=== PATIENT | male | born 1990 ===

== ENCOUNTER 2016-08-07 19:05 | Emergency (ER) | payer OTHER ==
[~2016-08-07] VITALS: Ht 182.9 cm; Wt 88.0 kg
[~2016-08-07 19:05] MED LIST: DOXY100T20 PO; IBUP-1542 PO
[2016-08-07 19:09] VITALS: Ht 182.9 cm; Wt 88.0 kg
[2016-08-07] MEDS ORDERED: IBUPROFEN 600 MG TAB PO ONE (20:00)
[2016-08-07 20:18] LABS: URINE BLOOD (Dip) POC Trace-lysed (NEGATIVE)
--- NOTE | 2016-08-07 20:59 | RADRPT ---
PROCEDURE: US Scrotum. CLINICAL INDICATION: Scrotal pain. TECHNIQUE: Multiple sonographic images of the scrotal region were obtained utilizing a linear arra y transducer with grayscale and color-flow and pulsed Doppler imaging. The images were reviewed on a high-resolution PACS workstation. COMPARISON: No prior studies are available for comparison. FINDINGS: The right testis measures 5.0 x 2.4 x 3.3 cm. The left testis measures 4.2 x 1.9 x 3.1 cm. There is no intratesticular mass. There is a small benign right epididymal cyst measuring 0.5 cm and a small benign left epididymal cy st measuring 0.3 cm. The epididymi are otherwise normal. There is normal flow to both testes demonstrated with color Doppler and pulsed Doppler sonography. There is no hydrocele. There is no varicocele. The scrotal wall is unremarkable. IMPRESSION: 1. Small benign bilateral epididymal cysts. 2. Otherwise normal scrotal ultrasound. RPTAT: QQ .Wilfredo Mcneill MD, MD Date Time Electronically viewed and signed by .Wilfredo Mcneill MD, on 08/07/2016 20:59 .R/
[2016-08-07] MEDS ORDERED: DOXY100T20 PO (21:24)
[2016-08-07] MEDS ORDERED: IBUP-1542 PO (21:25)
[2016-08-07 21:37] VITALS: BP 155/99; PULSE 88; RESP 18; TEMP 97.9
--- NOTE | 2016-08-08 01:31 | ERD ---
ER Documentation Chief Complaint Date/Time DATE: 08/08/16 TIME: 01:28 Chief Complaint Scrotal pain, swelling and back pain X 3 days. Seen before for complaint. HPI This patient is a 25-year-old male with no significant medical history presenting to the emergency department for scrotal pain and swelling ongoing intermittently for the past 2 days. Patient states is worse on the right testicle. The patient has had similar issues in the past and was treated successfully with doxycycline. He also reports chills. The patient denies any new sexual partners. The patient has had no urethral discharge. He has had no nausea, vomiting, diarrhea, fevers, or other symptoms. He took Tylenol with mild relief of his symptoms. He states he did get hit with a serving tray while at work just before the pain began 2 days ago. ROS All systems reviewed and are negative except as per history of present illness. Medications Home Meds Active Scripts Ibuprofen* (Motrin*) 600 Mg Tab, 600 MG PO Q6, #30 TAB Prov:VICENTE YUEN PA-C 08/07/16 Doxycycline Hyclate* (Doxycycline Hyclate*) 100 Mg Tablet.dr, 100 MG PO BID for 10 Days, #20 TAB Prov:VICENTE YUEN PA-C 08/07/16 Ibuprofen* (Motrin*) 600 Mg Tab, 600 MG PO Q6, #30 TAB Prov:ALKA HAWLEY MD 02/15/16 Doxycycline Hyclate* (Doxycycline Hyclate*) 100 Mg Tablet.dr, 100 MG PO BID for 10 Days, TAB Prov:ALKA HAWLEY MD 02/15/16 Allergies Allergies: Coded Allergies: No Known Allergy (Unverified , 02/15/16) PMhx/Soc Medical and Surgical Hx: pt denies Medical Hx, pt denies Surgical Hx Hx Alcohol Use: No Hx Substance Use: No Hx Tobacco Use: No Smoking Status: Never smoker FmHx Noncontributory for chief complaint. Physical Exam Vitals Vital Signs Date Time Temp Pulse Resp B/P Pulse Ox O2 Delivery O2 Flow Rate FiO2 08/07/16 21:37 97.9 88 18 155/99 97 Room Air 08/07/16 19:09 97.2 104 18 142/99 97 Physical Exam Const: The patient is resting comfortably in no acute distress. Head: Atraumatic Eyes: Normal Conjunctiva ENT: Normal External Ears, Nose and Mouth. Neck: Full range of motion..~ No meningismus. Resp: Clear to auscultation bilaterally Cardio: Regular rate and rhythm, no murmurs Abd: Soft, non tender, non distended. Normal bowel sounds Exam: Scrotum: Normal Hernia: None Testes/Epid: There is some tenderness to palpation of the superior portion of the right testicle. The right testicle is high riding compared to the left. Cremaster: Reflex intact Lymph: No inguinal lymphadenopathy Discharge: None Skin: No petechiae or rashes Back: No midline or flank tenderness Ext: No cyanosis, or edema Neur: Awake and alert Psych: Normal Mood and Affect Results 24 hrs Laboratory Tests Test 08/07/16 20:18 Bedside Urine pH (LAB) 5.5 Bedside Urine Protein (LAB) Negative Bedside Urine Glucose (UA) Negative Bedside Urine Ketones (LAB) Negative Bedside Urine Blood Trace-lysed Bedside Urine Nitrite (LAB) Negative Bedside Urine Leukocyte Esterase (L Negative Current Medications Medications (Trade) Dose Ordered Sig/Joyce Route PRN Reason Start Time Stop Time Status Last Admin Dose Admin Ibuprofen (Motrin) 600 mg ONCE ONCE PO 08/07/16 20:00 08/07/16 20:01 DC 08/07/16 20:13 Procedures/MDM 25-year-old male presents secondary to complaints of testicular pain. On physical examination the right testicle is lying higher than the left. The patient states this is normal for him. There is no warmth, erythema, or other abnormalities noted. Radiology: PROCEDURE: US Scrotum. CLINICAL INDICATION: Scrotal pain. TECHNIQUE: Multiple sonographic images of the scrotal region were obtained utilizing a linear array transducer with grayscale and color-flow and pulsed Doppler imaging. The images were reviewed on a high-resolution PACS workstation. COMPARISON: No prior studies are available for comparison. FINDINGS: The right testis measures 5.0 x 2.4 x 3.3 cm. The left testis measures 4.2 x 1.9 x 3.1 cm. There is no intratesticular mass. There is a small benign right epididymal cyst measuring 0.5 cm and a small benign left epididymal cyst measuring 0.3 cm. The epididymi are otherwise normal. There is normal flow to both testes demonstrated with color Doppler and pulsed Doppler sonography. There is no hydrocele. There is no varicocele. The scrotal wall is unremarkable. IMPRESSION: 1. Small benign bilateral epididymal cysts. 2. Otherwise normal scrotal ultrasound. RPTAT: QQ .Alka Mcneill MD, MD Date Time Electronically viewed and signed by .Alka Mcneill MD, MD on 08/07/2016 20:59 .R/ CC: VICENTE YUEN PA-C I suspect possible epididymitis. The patient will be treated as an outpatient with a prescription for ibuprofen and doxycycline. The patient understands the discharge plan and diagnosis. At this time I have low suspicion for testicular torsion, orchitis, septicemia, or other emergent conditions. The patient understands and agrees with the discharge plan and diagnosis. He was given strict return ER precautions and he demonstrates good understanding. The patient was seen dynamically stable prior to discharge. The patient's blood pressure was slightly elevated. Patient's blood pressure was elevated (>120/80 ) but appears stable without evidence of hypertension emergency or urgency. The patient was counseled about the risks of hypertension and urged to pursue outpatient monitoring and therapy within a week with their primary care physician. Departure Diagnosis: Primary Impression: Testicular pain Condition: Fair Patient Instructions: Epididymitis, Contusion, Testicles Or Scrotum Referrals: MARION BARRIENTOS MD [facility] YOU HAVE RECEIVED A MEDICAL SCREENING EXAM AND THE RESULTS INDICATE THAT YOU DO NOT HAVE A CONDITION THAT REQUIRES URGENT TREATMENT IN THE EMERGENCY DEPARTMENT. FURTHER EVALUATION AND TREATMENT OF YOUR CONDITION CAN WAIT UNTIL YOU ARE SEEN IN YOUR DOCTORS OFFICE WITHIN THE NEXT 1-2 DAYS. IT IS YOUR RESPONSIBILITY TO MAKE AN APPOINTMENT FOR FOLOW-UP CARE. IF YOU HAVE A PRIMARY DOCTOR --you should call your primary doctor and schedule an appointment IF YOU DO NOT HAVE A PRIMARY DOCTOR YOU CAN CALL OUR PHYSICIAN REFERRAL HOTLINE AT IF YOU CAN NOT AFFORD TO SEE A PHYSICIAN YOU CAN CHOSE FROM THE FOLLOWING [facility] [address] [facility]. [facility] [address] [facility]. CLAUDINE CAL[facility]WELL [facility] [address] [facility]. [facility] [address] [facility]. [facility] [address] [facility]. [facility] [address] Additional Instructions: Follow-up with your primary care physician within 1 week. Return to the emergency department immediately should you have any new or worsening symptoms, uncontrolled fevers, or other unexplained symptoms. Take all medications as directed. VICENTE YUEN PA-C Aug 08, 2016 01:31
== END 2016-08-07 21:38 | disposition home or self-care (01) ==
LOC: FTE 19:05
DX: N50.811 Right testicular pain (principal)
CPT/HCPCS: 76870; 81003; 87591; Z7610